=== PATIENT | male | born 1995 | race Caucasian/White ===

== ENCOUNTER 2021-09-07 11:46 | Emergency (ER) | payer OTHER, SELFPAY ==
[2021-09-07 11:54] VITALS: BP 119/78; PULSE 115; RESP 16; TEMP 36.2; O2SAT 100
--- NOTE | 2021-09-07 12:00 | ED.EAR ---
HPI - Ear Problem General Chief complaint: Ear Stated complaint: Left ear injury Time Seen by Provider: 09/07/21 12:00 Source: patient and RN notes reviewed Mode of arrival: ambulatory Limitations: no limitations History of Present Illness HPI Narrative: 25-year-old male presents concern for swollen left ear. He reports he hit the ear on a door about a week ago. He reports he noticed swelling over the last couple of days. He denies redness, reports warmth. Denies drainage. Denies intervention. Denies hearing changes. Denies drainage from the ear itself. MD Complaint: ear pain Related Data Home Medications Medication Instructions Recorded Confirmed No Home Medications 09/07/21 09/07/21 Allergies Allergy/AdvReac Type Severity Reaction Status Date / Time No Known Allergies Allergy Verified 09/07/21 11:54 Review of Systems Review of Systems: CONSTITUTIONAL: Denies malaise, chills, sweats, or fever. EYES: Denies visual changes, redness, or discharge. ENT: Reports ear pulling CARDIOVASCULAR: Denies chest pain, palpitations, or edema. SKIN: Denies rash or itching. Reports ear swelling MUSCULOSKELETAL: Denies myalgia. NEUROLOGIC: Denies headache. All systems reviewed & are unremarkable except as noted in HPI and below PMFSH Comments At time of signature, agree with nursing past medical, surgical, social and family history. There is no relevant family history pertinent to the presenting complaint Exam Narrative: GENERAL: Well-appearing, well-nourished, and in no acute distress. HEAD: Normocephalic EYES: PERRLA, conjunctivae clear ENT: Mucous membranes moist. TM pearly ruby with dull light reflex bilaterally; no tragal tenderness. NECK: Supple. CHEST: No respiratory distress, speaks in full sentences. HEART: Regular rate and rhythm. No murmur heard. SKIN: Warm, dry, no rash. Fluctuance noted at the triangular fossa of the left ear, no induration, erythema, warmth noted NEURO: Alert and oriented x3. PSYCH: Normal mood and affect Course Course Emergency Course: Patient is aware of diagnosis, understands and agrees to treatment plan. Anticipatory guidance given. Patient agrees to follow-up as directed and is aware of reasons to seek care at the emergency department. Portions of this record may have been created with voice recognition software Level of Care: Express Care Visit Vital Signs Vital signs: Vital Signs Temperature 97.1 F L 09/07/21 11:54 Pulse Rate 115 H 09/07/21 11:54 Respiratory Rate 16 09/07/21 11:54 Blood Pressure 119/78 09/07/21 11:54 Pulse Oximetry 100 09/07/21 11:54 Temperature 97.1 F L 09/07/21 11:54 Pulse Rate 115 H 09/07/21 11:54 Respiratory Rate 16 09/07/21 11:54 Blood Pressure 119/78 09/07/21 11:54 Pulse Oximetry 100 09/07/21 11:54 Reviewed. Procedures Abscess I/D other: Date of Incision: 09/07/21 Time of Incision: 12:05 Side (if applicable): left (ear) Local Anesthetic: lidocaine 1% Amount of anesthesia used (mL): 0.5 Technique: needle aspiration Amount of fluid expressed (mL): 3 Irrigation: No Packing used?: none I&D Results: Other (Serous fluid) Medical Decision Making MDM Narrative Medical decision making narrative: Exam findings show no acute concerns or changes; patient is non-toxic appearing and is in no distress. Patient is appropriate for outpatient treatment and follow-up. Vital Signs Vital Signs: Vital Signs Temperature 97.1 F L 09/07/21 11:54 Pulse Rate 115 H 09/07/21 11:54 Respiratory Rate 16 09/07/21 11:54 Blood Pressure 119/78 09/07/21 11:54 Pulse Oximetry 100 09/07/21 11:54 Temperature 97.1 F L 09/07/21 11:54 Pulse Rate 115 H 09/07/21 11:54 Respiratory Rate 16 09/07/21 11:54 Blood Pressure 119/78 09/07/21 11:54 Pulse Oximetry 100 09/07/21 11:54 Critical Care Time Critical Care Time Critical Care Time: No Discharge Plan
== END 2021-09-07 12:25 | disposition home or self-care (01) ==
PROVIDERS: Emergency Provider Nurse Practitioner
DX: M95.12 Cauliflower ear, left ear (principal)
CPT/HCPCS: 10160; 99212; G0463

== ENCOUNTER 2021-09-18 12:31 | Emergency (ER) | payer OTHER, SELFPAY ==
[2021-09-18 12:35] VITALS: BP 123/86; PULSE 109; RESP 16; TEMP 36.5; O2SAT 100
--- NOTE | 2021-09-18 12:39 | ED.EAR ---
HPI - Ear Problem General Chief complaint: Ear Stated complaint: Left ear pain Time Seen by Provider: 09/18/21 12:50 Source: patient Mode of arrival: ambulatory Limitations: no limitations History of Present Illness HPI Narrative: 25 y/o male presented for c/o left outer ear swelling. He was seen 09/07/21 for the same complaint after hitting the ear on a door 1 week prior to that encounter. Needle aspiration performed at that time. Today he states he rubbed the area just above the tragus and heard a 'rushing' sound and felt the ear swell again. Denies pain, tinnitus, drainage, or decreased hearing. Not taking blood thinners. MD Complaint: ear pain Related Data Home Medications Medication Instructions Recorded Confirmed No Home Medications 09/07/21 09/07/21 Allergies Allergy/AdvReac Type Severity Reaction Status Date / Time No Known Allergies Allergy Verified 09/18/21 12:41 Review of Systems Review of Systems: CONSTITUTIONAL: Denies malaise, chills, or fever. EYES: Denies visual changes, redness, or discharge. ENT: Denies rhinorrhea, congestion, sinus pain, and sore throat. Reports ear swelling CARDIOVASCULAR: Denies chest pain, palpitations, or edema. RESPIRATORY: Denies cough or dyspnea. GASTROINTESTINAL: Denies abdominal pain, nausea, vomiting, diarrhea SKIN: Denies rash or itching. MUSCULOSKELETAL: Denies myalgia. NEUROLOGIC: Denies headache. All systems reviewed & are unremarkable except as noted in HPI and below PMFSH Comments At time of signature, agree with nursing past medical, surgical, social and family history. There is no relevant family history pertinent to the presenting complaint Exam Narrative: GENERAL: Well-appearing, no acute distress. HEAD: Normocephalic EYES: PERRLA, conjunctivae clear ENT: Nares clear. Mucous membranes moist. TMs pearly ruby with dull light reflex bilaterally; Left helix/fossa area with swelling approx 2 cm diameter; no tragal tenderness. Oropharynx not erythematous without lesions. NECK: Supple. No lymphadenopathy CHEST: Clear to auscultation, breath sounds equal. HEART: Regular rate and rhythm. SKIN: Warm, dry, no rash. NEURO: Alert and oriented x3. PSYCH: Normal mood and affect Course Course Emergency Course: Patient is aware of diagnosis, understands and agrees to treatment plan. Anticipatory guidance given. Patient agrees to follow-up as directed and is aware of reasons to seek care at the emergency department. Portions of this record may have been created with voice recognition software Level of Care: Express Care Visit Vital Signs Vital signs: Vital Signs Temperature 97.7 F 09/18/21 12:35 Pulse Rate 109 H 09/18/21 12:35 Respiratory Rate 16 09/18/21 12:35 Blood Pressure 123/86 09/18/21 12:35 Pulse Oximetry 100 09/18/21 12:35 Temperature 97.7 F 09/18/21 12:35 Pulse Rate 109 H 09/18/21 12:35 Respiratory Rate 16 09/18/21 12:35 Blood Pressure 123/86 09/18/21 12:35 Pulse Oximetry 100 09/18/21 12:35 Reviewed Medical Decision Making MDM Narrative Medical decision making narrative: Exam findings show no acute concerns or changes; patient is non-toxic appearing and is in no distress. Patient is appropriate for outpatient treatment and follow-up. Differential Diagnosis Differential Diagnosis: auricular hematoma, otitis media, otitis externa, eustachian tube dysfunction, foreign body, cerumen impaction. Vital Signs Vital Signs: Vital Signs Temperature 97.7 F 09/18/21 12:35 Pulse Rate 109 H 09/18/21 12:35 Respiratory Rate 16 09/18/21 12:35 Blood Pressure 123/86 09/18/21 12:35 Pulse Oximetry 100 09/18/21 12:35 Temperature 97.7 F 09/18/21 12:35 Pulse Rate 109 H 09/18/21 12:35 Respiratory Rate 16 09/18/21 12:35 Blood Pressure 123/86 09/18/21 12:35 Pulse Oximetry 100 09/18/21 12:35 Discharge Plan Discharge Clinical Impression: Hematoma auricle/pinna Qualifiers: Encounter type: subsequ
== END 2021-09-18 13:05 | disposition home or self-care (01) ==
PROVIDERS: Emergency Provider Nurse Practitioner Family
DX: S00.432A Contusion of left ear, initial encounter (principal); X58.XXXA Exposure to other specified factors, initial encounter
CPT/HCPCS: 99211; G0463

== ENCOUNTER 2022-11-29 21:10 | Emergency (ER) | payer OTHER, SELFPAY ==
[2022-11-29 21:14] VITALS: BP 131/91; PULSE 108; RESP 16; TEMP 36.7; O2SAT 99
[2022-11-29 23:41] VITALS: BP 124/81; PULSE 96; RESP 18; O2SAT 98
== END 2022-11-30 02:53 | disposition left against medical advice (07) ==
DX: M54.6 Pain in thoracic spine (principal)
CPT/HCPCS: 99199